=== PATIENT | male | born 1965 | race African-American/Black ===

== ENCOUNTER 2017-12-23 14:46 | Emergency (ER) | payer BC, OTHER ==
[~2017-12-23] VITALS: Ht 162.6 cm; Wt 118.0 kg
[2017-12-23] MEDS ORDERED: ACETAMINOPHEN 500MG TABLET PO ONE (15:15)
[2017-12-23] MEDS ORDERED: SODIUM CHLORIDE 0.9% 1,000 ML IV ONE (17:40)
[2017-12-23] MEDS ORDERED: KETOROLAC 30MG/ML VIAL IV ONE (17:45)
[2017-12-23 17:55] LABS: HEMATOCRIT. 41.3 % (42.0-52.0); HEMOGLOBIN. 14.3 g/dL (14.0-18.0); MEAN CORPUSCULAR HEMOGLOBIN 29.7 pg (28.0-32.0); MEAN CORPUSCULAR VOLUME 85.3 fL (80.0-94.0); MEAN PLATELET VOLUME 7.5 fl (7.4-10.4); PLATELET 168 x1000/uL (130-400); RED BLOOD CELL COUNT 4.84 mill/uL (4.7-6.1); RED CELL DISTRIBUTION WIDTH 12.8 % (11.6-14.6)
[2017-12-23 18:03] LABS: INR 1.1; PROTHROMBIN TIME 11.5 sec (9.4-11.6)
[2017-12-23 18:06] LABS: CHLORIDE 99 mEq/L (98-107)
[2017-12-23 18:19] LABS: PLATELET ESTIMATE NORMAL
[2017-12-23 19:40] LABS: CLARITY URINE CLEAR (CLEAR); COLOR URINE YELLOW (YELLOW); KETONES URINE NEGATIVE (NEGATIVE); LEUKOCYTE ESTERASE URINE NEGATIVE (NEGATIVE); NITRITE URINE NEGATIVE (NEGATIVE); OCCULT BLOOD URINE NEGATIVE (NEGATIVE); PH URINE 6.5 (4.5-8.0); PROTEIN URINE NEGATIVE (NEGATIVE); SPECIFIC GRAVITY URINE 1.006 (1.005-1.030)
[2017-12-23 21:03] VITALS: BP 122/71
== END 2017-12-23 21:45 | disposition home or self-care (01) ==
LOC: ER 14:46
DX: J11.1 Influenza due to unidentified influenza virus with other respiratory manifestations (principal); I10 Essential (primary) hypertension
CPT/HCPCS: 36415; 71045; 80053; 81003; 85025; 85610; 87804; 96361; 96374; 99285; J1885; J7030